=== PATIENT | female | born 1985 | race Caucasian/White ===

== ENCOUNTER 2020-12-08 20:46 | Emergency (ER) | payer OTHER ==
[~2020-12-08] VITALS: Ht 162.6 cm; Wt 77.1 kg
[2020-12-08] MEDS ORDERED: IBUP600 PO (22:01)
== END 2020-12-08 22:12 | disposition home or self-care (01) ==
LOC: ER 20:46
DX: S00.93XA Contusion of unspecified part of head, initial encounter (principal); S40.022A Contusion of left upper arm, initial encounter; S29.012A Strain of muscle and tendon of back wall of thorax, initial encounter; V49.50XA Passenger injured in collision with unspecified motor vehicles in traffic accident, initial encounter; Y92.410 Unspecified street and highway as the place of occurrence of the external cause
CPT/HCPCS: 72080; 99283-25